=== PATIENT | female | born 1990 | race Hispanic/Latino ===

== ENCOUNTER 2019-12-11 20:10 | Emergency (ER) | payer SELFPAY ==
--- NOTE | 2019-12-11 20:44 | Event Note ---
ED Screening Note ED Screening Note: hx of hernia periumbilical abd pain for 3 days ago constipation for 2 days no diarrhea +nausea no vomiting able to tolerate PO intake PMHx none no allergies to meds LNMP: 11/24/2019 abd surgical hx: x2 This initial assessment/diagnostic orders/clinical plan/treatment(s) is/are subject to change based on patients health status, clinical progression and re- assessment by fellow clinical providers in the ED. Further treatment and workup at subsequent clinical providers discretion. Patient/guardian urged not to elope from the ED as their condition may be serious if not clinically assessed and managed. Initial orders include: labs, UA
[2019-12-11] MEDS ORDERED: MORPHINE 4 MG/1 ML INJ IV ONE (21:04)
[2019-12-11] MEDS ORDERED: ONDANSETRON 4 MG/2 ML INJ IV ONE (21:04)
[2019-12-11] MEDS ORDERED: SODIUM CHLORIDE 0.9% 1000 ML 1,000 ML IV ONE (21:04)
[2019-12-11 21:16] LABS: Basophils % (Auto) 0.5 % (0.0-1.8); Eosinophils # (Auto) 0.1 K/mm3 (0.0-0.4); Eosinophils % (Auto) 1.2 % (0.0-4.3); Hematocrit 39.6 % (30.3-42.9); Hemoglobin 13.6 gm/dl (10.1-14.3); Lymphocytes # (Auto) 2.9 K/mm3 (1.2-5.4); Lymphocytes % (Auto) 28.7 % (13.4-35.0); Mean Corpuscular HGB Conc 34 % (30-34); Mean Corpuscular Volume 96 fl (79-97); Monocytes # (Auto) 0.6 K/mm3 (0.0-0.8); Monocytes % (Auto) 6.1 % (0.0-7.3); Platelet Count 257 K/mm3 (140-440); Red Blood Count 4.14 M/mm3 (3.65-5.03); Red Cell Distribution Width 13.3 % (13.2-15.2)
[2019-12-11 21:29] LABS: Alanine Aminotransferase 15 units/L (7-56); Albumin 4.4 g/dL (3.9-5); Blood Urea Nitrogen 13 mg/dL (7-17); Hemolysis Index 23
[2019-12-11 21:32] LABS: BUN/Creatinine Ratio 19
[2019-12-11 22:38] LABS: Bilirubin,Urine NEG (Negative); Blood,Urine NEG (Negative); Color,Urine Straw (Yellow); Mucus,Urine FEW /HPF; Protein,Urine <15 mg/dL mg/dL (Negative); RBC,Urine < 1.0 /HPF (0.0-6.0); Urobilinogen,Urine < 2.0 mg/dL (<2.0); WBC,Urine < 1.0 /HPF (0.0-6.0)
--- NOTE | 2019-12-12 00:51 | Emergency Department Report ---
<JESUSITA RAMIREZ - Last Filed: 12/12/19 01:25> ED Abdominal Pain HPI - General Chief Complaint: Abdominal Pain Stated Complaint: ABDOMINAL PAIN NEAR BELLY BUTTON Time Seen by Provider: 12/11/19 20:42 Source: patient Mode of arrival: Ambulatory Limitations: No Limitations - History of Present Illness Initial Comments: Patient is a 29-year-old white female with a history of asthma and seizures as a child who presents to the ED with complaint of acute onset persistent severe abdominal pain in the periumbilical area with nausea, worse in the last 3 days. Patient states that she also has a history of umbilical hernia but that the pain has never been worse than it is currently. Patient states that she was supposed to follow-up with the general surgeon when she was with her last child about a year ago but did not follow-up because of her . Patient states that since then she has not had any problem with umbilical hernia. Patient states that the pain has worsened especially the last 3 days. Patient denies fever, chills, dizziness, syncope, vomiting, diarrhea, chest pain, shortness of breath, dysuria, urinary frequency and urgency, traumatic injury, heavy lifting, fall or back pain sore throat and vaginal bleeding. MD Complaint: abdominal pain, other (Nausea) -: Sudden, days(s) (5) Location: periumbilical Radiation: none Migration to: no migration Severity: severe Severity scale (0 -10): 8 Quality: aching, sharp Consistency: constant Improves With: nothing Worsens With: movement Associated Symptoms: denies other symptoms, nausea. denies: vomiting, diarrhea, fever, chills, constipation, dysuria, hematemesis, hematochezia, melena, hematuria, anorexia, other - Related Data LMP Date: 11/19/19 Previous Rx's Medication Instructions Recorded Last Taken Type Ferrous Sulfate [Feosol 325 MG tab] 325 mg PO QDAY #60 tablet 01/09/18 Unknown Rx Vit-Fe Fumar-FA [ 1 each PO QDAY #30 tablet 01/09/18 Unknown Rx Vitamin] oxyCODONE /ACETAMINOPHEN [Percocet 1 tab PO Q6H PRN #30 tablet 01/09/18 Unknown Rx 5/325 mg] Docusate Sodium [Colace] 100 mg PO BID PRN #20 capsule 11/04/20 Unknown Rx Ibuprofen [Motrin 800 MG tab] 800 mg PO Q6H PRN #30 tablet 12/12/19 Unknown Rx Ondansetron [Zofran Odt] 4 mg PO Q8HR PRN #20 tab.rapdis 12/12/19 Unknown Rx traMADoL [Ultram 50 MG tab] 50 mg PO Q6HR PRN #15 tablet 12/12/19 Unknown Rx Allergies Allergy/AdvReac Type Severity Reaction Status Date / Time No Known Allergies Allergy Unverified 01/06/18 06:08 ED Review of Systems Constitutional: denies: chills, fever Eyes: denies: eye pain, eye discharge, vision change ENT: denies: ear pain, throat pain Respiratory: denies: cough, shortness of breath, wheezing Cardiovascular: denies: chest pain, palpitations Endocrine: no symptoms reported Gastrointestinal: abdominal pain (Periumbilical), nausea. denies: diarrhea Genitourinary: denies: urgency, dysuria, discharge Musculoskeletal: denies: back pain, joint swelling, arthralgia Skin: denies: rash, lesions Neurological: denies: headache, weakness, paresthesias Psychiatric: denies: anxiety, depression Hematological/Lymphatic: denies: easy bleeding, easy bruising ED Past Medical Hx - Past Medical History Previous Medical History?: Yes Hx Hypertension: No Hx Diabetes: No Hx Deep Vein Thrombosis: No Hx Renal Disease: No Hx Sickle Cell Disease: No Hx Seizures: Yes (last at age 12) Hx Asthma: Yes Hx HIV: No - Surgical History Past Surgical History?: No - Social History Smoking Status: Never Smoker Substance Use Type: None - Medications Home Medications: Home Medications Medication Instructions Recorded Confirmed Last Taken Type Ferrous Sulfate [Feosol 325 MG tab] 325 mg PO QDAY #60 tablet 01/09/18 Unknown Rx Vit-Fe Fumar-FA [ 1 each PO QDAY #30 tablet 01/09/18 Unknown Rx Vitamin] oxyCODONE /ACETAMINOPHEN [Percocet 1 tab PO Q6H PRN #30 tablet 01/09/18 Unknown Rx 5/325 mg] Docusate Sodium [Colace] 100 mg PO BID PRN #20 capsule 12/12/19 Unknown Rx Ibuprofen [Motrin 800 MG tab] 800 mg PO Q6H PRN #30 tablet 12/12/19 Unknown Rx Ondansetron [Zofran Odt] 4 mg PO Q8HR PRN #20 tab.rapdis 12/12/19 Unknown Rx traMADoL [Ultram 50 MG tab] 50 mg PO Q6HR PRN #15 tablet 12/12/19 Unknown Rx ED Physical Exam - General Limitations: No Limitations General appearance: alert, in no apparent distress - Head Head exam: Present: atraumatic, normocephalic, normal inspection - Eye Eye exam: Present: normal appearance, PERRL, EOMI - ENT ENT exam: Present: normal exam, normal orophraynx, mucous membranes moist, TM's normal bilaterally, normal external ear exam - Neck Neck exam: Present: normal inspection, full ROM - Respiratory Respiratory exam: Present: normal lung sounds bilaterally. Absent: respiratory distress, wheezes, rales, rhonchi, chest wall tenderness, accessory muscle use, decreased breath sounds, prolonged expiratory - Cardiovascular Cardiovascular Exam: Present: regular rate, normal rhythm, normal heart sounds. Absent: systolic murmur, diastolic murmur, rubs, gallop - GI/Abdominal GI/Abdominal exam: Present: soft, tenderness (Palpable periumbilical abdominal tenderness, with guarding), guarding, normal bowel sounds. Absent: rebound, rigid, hyperactive bowel sounds, organomegaly - Bi-manual exam: Present: other (Pelvic exam deferred) - Extremities Exam Extremities exam: Present: normal inspection, full ROM, normal capillary refill. Absent: pedal edema - Back Exam Back exam: Present: normal inspection, full ROM. Absent: tenderness, CVA tenderness (R), CVA tenderness (L), muscle spasm, paraspinal tenderness, vertebral tenderness - Neurological Exam Neurological exam: Present: alert, oriented X3, CN II-XII intact, normal gait, reflexes normal - Psychiatric Psychiatric exam: Present: normal affect, normal mood - Skin Skin exam: Present: warm, dry, intact, normal color. Absent: rash ED Medical Decision Making - Lab Data Result diagrams: 12/11/19 20:56 12/11/19 20:56 - Radiology Data Radiology results: report reviewed, image reviewed Findings [facility] [address] [place] [address] Cat Scan Report Signed Patient: VIKY CARIAS MR#: [id number] : 1990 Acct:[id number] Age/Sex: 29 / F ADM Date: 12/11/19 Loc: ED Attending Dr: Ordering Physician: LAWRENCE SOTELO Date of Service: 12/11/19 Procedure(s): CT abdomen pelvis w con Accession Number(s): [id number] cc: LAWRENCE SOTELO CT ABDOMEN AND PELVIS WITH IV CONTRAST INDICATION: Patient complains of abdominal pain, question poss hernia. COMPARISON: None available. TECHNIQUE: Axial CT images were obtained through the abdomen and pelvis after 100 mL IV contrast. All CT scans at this location are performed using CT dose reduction for ALARA by means of automated exposure control. FINDINGS -- ABDOMEN: Lung Bases: No acute abnormality. Liver: Normal. Gallbladder: Normal. Bile Ducts: Normal. Pancreas: Normal. Spleen: Normal. Adrenals: Normal. Right Kidney and Proximal Ureter: Normal. Left Kidney and Proximal Ureter: Normal. Stomach and Bowel: Normal. Lymph Nodes: No significant adenopathy. Aorta: No significant abnormality. IVC: Normal. Additional Findings: There is a prominent ventral abdominal hernia that measures 2.5 cm in diameter that contains herniated omental fat.. FINDINGS -- PELVIS: Urinary Bladder and Distal Ureters: Mild urinary bladder wall thickening.. Reproductive Organs: Hemorrhagic peripherally enhancing type cyst identified within the right ovary measuring 1.7 cm in diameter.. Appendix: Normal. Bowel: No acute abnormality. Free Fluid: None. Lymph Nodes: No significant adenopathy. Additional Findings: None. Skeletal System: No acute abnormality. IMPRESSION: 1. 2 cm ventral abdominal wall hernia containing herniated omentum concerning moderately developed ischemia of the herniated omentum. No evidence of high-grade small bowel large bowel obstruction. 2. Nonspecific urinary bladder wall thickening could be seen with cystitis. Signer Name: Phil Arana MD Signed: 12/12/2019 12:56 AM Workstation Name: [id number] Transcribed By: BC Dictated By: Phil Arana MD Electronically Authenticated By: Phil Arana MD Signed Date/Time: [birth year]/1955 DD/ TD/TT: - Differential Diagnosis Incarcerated hernia; SBO; appendicitis; cholelithiasis; colitis ED Disposition Clinical Impression: Ventral hernia Abdominal pain Qualifiers: Abdominal location: periumbilical Qualified Code(s): R10.33 - Periumbilical pain Disposition: DC-01 TO HOME OR SELFCARE Condition: Stable Instructions: Ventral Hernia (ED), Moderate Sedation (ED) Additional Instructions: Take the medication as prescribed. Follow-up with your doctor or doctor/clinic provided. Return if symptoms worsen as indicated by your discharge instructions. Prescriptions: Docusate Sodium [Colace] 100 mg PO BID PRN #20 capsule PRN Reason: Constipation Ibuprofen [Motrin 800 MG tab] 800 mg PO Q6H PRN #30 tablet PRN Reason: Pain, Mild (1-3) traMADoL [Ultram 50 MG tab] 50 mg PO Q6HR PRN #15 tablet PRN Reason: Pain Ondansetron [Zofran Odt] 4 mg PO Q8HR PRN #20 tab.rapdis PRN Reason: Nausea And Vomiting Referrals: BENITA SYKES DO [Staff Physician] - 2-3 Days (surgeon ) <ARNULFO WHALEY - Last Filed: 12/12/19 05:35> ED Review of Systems ROS: Stated complaint: ABDOMINAL PAIN NEAR BELLY BUTTON Other details as noted in HPI ED Course Vital Signs 12/11/19 12/12/19 12/12/19 20:34 02:30 02:31 Temperature 98.7 F Pulse Rate 69 46 L 58 L Pulse Rate [ Intra-Procedure ] Pulse Rate [ Post-Procedure] Pulse Rate [Pre -Procedure] Respiratory 20 14 14 Rate Respiratory Rate [Intra- Procedure] Respiratory Rate [Post- Procedure] Respiratory Rate [Pre- Procedure] Blood Pressure 119/60 131/73 Blood Pressure [Intra- Procedure] Blood Pressure 115/57 [Left] Blood Pressure [Post-Procedure ] Blood Pressure [Pre-Procedure] O2 Sat by Pulse 100 100 100 Oximetry O2 Sat by Pulse Oximetry [ Intra-Procedure ] O2 Sat by Pulse Oximetry [Post -Procedure] O2 Sat by Pulse Oximetry [Pre- Procedure] 12/12/19 12/12/19 12/12/19 02:45 02:50 02:55 Temperature Pulse Rate 58 L Pulse Rate [ 80 Intra-Procedure ] Pulse Rate [ Post-Procedure] Pulse Rate [Pre 52 L -Procedure] Respiratory 14 Rate Respiratory 22 Rate [Intra- Procedure] Respiratory Rate [Post- Procedure] Respiratory 12 Rate [Pre- Procedure] Blood Pressure 108/48 Blood Pressure 157/97 [Intra- Procedure] Blood Pressure [Left] Blood Pressure [Post-Procedure ] Blood Pressure 115/57 [Pre-Procedure] O2 Sat by Pulse 100 Oximetry O2 Sat by Pulse 100 Oximetry [ Intra-Procedure ] O2 Sat by Pulse Oximetry [Post -Procedure] O2 Sat by Pulse 100 Oximetry [Pre- Procedure] 12/12/19 12/12/19 12/12/19 03:00 03:05 03:10 Temperature Pulse Rate 111 H Pulse Rate [ 85 66 Intra-Procedure ] Pulse Rate [ Post-Procedure] Pulse Rate [Pre 110 H -Procedure] Respiratory 22 Rate Respiratory 19 10 L Rate [Intra- Procedure] Respiratory Rate [Post- Procedure] Respiratory 21 Rate [Pre- Procedure] Blood Pressure 160/80 Blood Pressure 155/80 170/74 [Intra- Procedure] Blood Pressure [Left] Blood Pressure [Post-Procedure ] Blood Pressure 160/80 [Pre-Procedure] O2 Sat by Pulse 100 Oximetry O2 Sat by Pulse 100 100 Oximetry [ Intra-Procedure ] O2 Sat by Pulse Oximetry [Post -Procedure] O2 Sat by Pulse 100 Oximetry [Pre- Procedure] 12/12/19 12/12/19 12/12/19 03:15 03:16 03:24 Temperature Pulse Rate 53 L Pulse Rate [ Intra-Procedure ] Pulse Rate [ 58 L 51 L Post-Procedure] Pulse Rate [Pre -Procedure] Respiratory 10 L Rate Respiratory Rate [Intra- Procedure] Respiratory 13 12 Rate [Post- Procedure] Respiratory Rate [Pre- Procedure] Blood Pressure 134/72 Blood Pressure [Intra- Procedure] Blood Pressure [Left] Blood Pressure 134/72 118/67 [Post-Procedure ] Blood Pressure [Pre-Procedure] O2 Sat by Pulse 100 Oximetry O2 Sat by Pulse Oximetry [ Intra-Procedure ] O2 Sat by Pulse 99 98 Oximetry [Post -Procedure] O2 Sat by Pulse Oximetry [Pre- Procedure] 12/12/19 12/12/19 12/12/19 03:30 03:45 05:11 Temperature Pulse Rate 47 L 45 L 66 Pulse Rate [ Intra-Procedure ] Pulse Rate [ Post-Procedure] Pulse Rate [Pre -Procedure] Respiratory 11 L 11 L 12 Rate Respiratory Rate [Intra- Procedure] Respiratory Rate [Post- Procedure] Respiratory Rate [Pre- Procedure] Blood Pressure 112/65 118/57 Blood Pressure [Intra- Procedure] Blood Pressure 105/55 [Left] Blood Pressure [Post-Procedure ] Blood Pressure [Pre-Procedure] O2 Sat by Pulse 98 98 100 Oximetry O2 Sat by Pulse Oximetry [ Intra-Procedure ] O2 Sat by Pulse Oximetry [Post -Procedure] O2 Sat by Pulse Oximetry [Pre- Procedure] - Consultations Consultation #1: 12/12/19 01:[address] Sykes on-call surgeon who states that I may attempt to reduce hernia with omentum. If hernia is irreducible and patient has significant pain she may be admitted to the hospital service and she will consult on the patient in the a.m. if pain is controlled patient may discharged - Procedure Description Procedures done: Supraumbilical ventral hernia reduction. Patient has a ventral hernia above the umbilicus with omental fat herniation. Patient received ketamine and pressure held with palpation of hernia ring on exam. Status post procedure patient denies persistent abdominal pain and feels better. - Moderate Sedation Indications: other ASA Class: I Mallampati Airway Score: 2 Time of Last PO Intake: 01:45 (sip of soda) Preparation: phototypesetting equipment monitor applied, pulse oximeter, capnometry used, suppl emental O2 applied, suction/airway equipment at bedside, IV secured Ketamine: IV Ketamine Dose: 77 Complications: none Patient Tolerated Procedure: well, no complications Additional Comments: Procedure time onset 2:48 and ended 2:56am for reduction of ventral hernia. Patient was then observed and monitored by nurse and respiratory therapist (see note) ED Medical Decision Making - Lab Data Result diagrams: 12/11/19 20:56 12/11/19 20:56 Lab Results 12/11/19 12/11/19 12/11/19 Range/Units 20:56 20:56 20:56 WBC 10.2 (4.5-11.0) K/mm3 RBC 4.14 (3.65-5.03) M/mm3 Hgb 13.6 (10.1-14.3) gm/dl Hct 39.6 (30.3-42.9) % MCV 96 (79-97) fl MCH 33 H (28-32) pg MCHC 34 (30-34) % RDW 13.3 (13.2-15.2) % Plt Count 257 (140-440) K/mm3 Lymph % (Auto) 28.7 (13.4-35.0) % [place] % (Auto) 6.1 (0.0-7.3) % Eos % (Auto) 1.2 (0.0-4.3) % Baso % (Auto) 0.5 (0.0-1.8) % Lymph # (Auto) 2.9 (1.2-5.4) K/mm3 [place] # (Auto) 0.6 (0.0-0.8) K/mm3 Eos # (Auto) 0.1 (0.0-0.4) K/mm3 Baso # (Auto) 0.0 (0.0-0.1) K/mm3 Seg Neutrophils % 63.5 (40.0-70.0) % Seg Neutrophils # 6.5 (1.8-7.7) K/mm3 Sodium 137 (137-145) mmol/L Potassium 3.7 (3.6-5.0) mmol/L Chloride 102.3 (98-107) mmol/L Carbon Dioxide 24 (22-30) mmol/L Anion Gap 14 mmol/L BUN 13 (7-17) mg/dL Creatinine 0.7 (0.6-1.2) mg/dL Estimated GFR > 60 ml/min BUN/Creatinine Ratio 19 % Glucose 90 (65-100) mg/dL Calcium 9.0 (8.4-10.2) mg/dL Total Bilirubin < 0.20 (0.1-1.2) mg/dL AST 15 (5-40) units/L ALT 15 (7-56) units/L Alkaline Phosphatase 58 (35-129) units/L Total Protein 7.3 (6.3-8.2) g/dL Albumin 4.4 (3.9-5) g/dL Albumin/Globulin Ratio 1.5 % Lipase 18 (13-60) units/L HCG, Qual Negative (Negative) Urine Color (Yellow) Urine Turbidity (Clear) Urine pH (5.0-7.0) Ur Specific [place] (1.003-1.030) Urine Protein (Negative) mg/dL Urine Glucose (UA) (Negative) mg/dL Urine Ketones (Negative) mg/dL Urine Blood (Negative) Urine Nitrite (Negative) Urine Bilirubin (Negative) Urine Urobilinogen (<2.0) mg/dL Ur Leukocyte Esterase (Negative) Urine WBC (Auto) (0.0-6.0) /HPF Urine RBC (Auto) (0.0-6.0) /HPF U Epithel Cells (Auto) (0-13.0) /HPF Urine Mucus /HPF 12/11/19 Range/Units 22:00 WBC (4.5-11.0) K/mm3 RBC (3.65-5.03) M/mm3 Hgb (10.1-14.3) gm/dl Hct (30.3-42.9) % MCV (79-97) fl MCH (28-32) pg MCHC (30-34) % RDW (13.2-15.2) % Plt Count (140-440) K/mm3 Lymph % (Auto) (13.4-35.0) % [place] % (Auto) (0.0-7.3) % Eos % (Auto) (0.0-4.3) % Baso % (Auto) (0.0-1.8) % Lymph # (Auto) (1.2-5.4) K/mm3 [place] # (Auto) (0.0-0.8) K/mm3 Eos # (Auto) (0.0-0.4) K/mm3 Baso # (Auto) (0.0-0.1) K/mm3 Seg Neutrophils % (40.0-70.0) % Seg Neutrophils # (1.8-7.7) K/mm3 Sodium (137-145) mmol/L Potassium (3.6-5.0) mmol/L Chloride (98-107) mmol/L Carbon Dioxide (22-30) mmol/L Anion Gap mmol/L BUN (7-17) mg/dL Creatinine (0.6-1.2) mg/dL Estimated GFR ml/min BUN/Creatinine Ratio % Glucose (65-100) mg/dL Calcium (8.4-10.2) mg/dL Total Bilirubin (0.1-1.2) mg/dL AST (5-40) units/L ALT (7-56) units/L Alkaline Phosphatase (35-129) units/L Total Protein (6.3-8.2) g/dL Albumin (3.9-5) g/dL Albumin/Globulin Ratio % Lipase (13-60) units/L HCG, Qual (Negative) Urine Color Straw (Yellow) Urine Turbidity Clear (Clear) Urine pH 5.0 (5.0-7.0) Ur Specific [place] 1.008 (1.003-1.030) Urine Protein <15 mg/dl (Negative) mg/dL Urine Glucose (UA) Neg (Negative) mg/dL Urine Ketones Neg (Negative) mg/dL Urine Blood Neg (Negative) Urine Nitrite Neg (Negative) Urine Bilirubin Neg (Negative) Urine Urobilinogen < 2.0 (<2.0) mg/dL Ur Leukocyte Esterase Neg (Negative) Urine WBC (Auto) < 1.0 (0.0-6.0) /HPF Urine RBC (Auto) < 1.0 (0.0-6.0) /HPF U Epithel Cells (Auto) 2.0 (0-13.0) /HPF Urine Mucus Few /HPF - Medical Decision Making Care assumed from local provider who performed initial evaluation and work-up. Patient presents to the hospital with abdominal pain worsening for the past 3 days with nausea and ventral hernia with omental fat and ischemia on CT abdomen and pelvis. Patient does not have leukocytosis, fever, or signs of sepsis. Case discussed with general surgeon who recommended a did reduction attempt in the ED with directions to admit if pain persists and discharged if patient feels better status post reduction attempt. Patient does feel better after reduction with no complaints of pain. She did develop nausea and vomiting after ketamine and reports previous history of nausea vomiting after anesthesia status post C- section in the past. Patient will be discharged with outpatient surgery follow- up. Critical Care Time: No Critical care attestation.: If time is entered above; I have spent that time in minutes in the direct care of this critically ill patient, excluding procedure time. ED Disposition Is pt being admited?: No Does the pt Need Aspirin: No Time of Disposition: 05:32
--- NOTE | 2019-12-12 01:01 | Cat Scan Report ---
CT ABDOMEN AND PELVIS WITH IV CONTRAST INDICATION: Patient complains of abdominal pain, question poss hernia. COMPARISON: None available. TECHNIQUE: Axial CT images were obtained through the abdomen and pelvis after 100 mL IV contrast. All CT scans a t this location are performed using CT dose reduction for ALARA by means of automated exposure contro l. FINDINGS -- ABDOMEN: Lung Bases: No acute abnormality. Liver: Normal. Gallbladder: Normal. Bile Ducts: Normal. Pancreas: Normal. Spleen: Normal. Adrenals: Normal. Right Kidney and Proximal Ureter: Normal. Left Kidney and Proximal Ureter: Normal. Stomach and Bowel: Normal. Lymph Nodes: No significant adenopathy. Aorta: No significant abnormality. IVC: Normal. Additional Findings: There is a prominent ventral abdominal hernia that measures 2.5 cm in diameter t hat contains herniated omental fat.. FINDINGS -- PELVIS: Urinary Bladder and Distal Ureters: Mild urinary bladder wall thickening.. Reproductive Organs: Hemorrhagic peripherally enhancing type cyst identified within the right ovary m easuring 1.7 cm in diameter.. Appendix: Normal. Bowel: No acute abnormality. Free Fluid: None. Lymph Nodes: No significant adenopathy. Additional Findings: None. Skeletal System: No acute abnormality. IMPRESSION: 1. 2 cm ventral abdominal wall hernia containing herniated omentum concerning moderately developed is chemia of the herniated omentum. No evidence of high-grade small bowel large bowel obstruction. 2. Nonspecific urinary bladder wall thickening could be seen with cystitis. Signer Name: Phil Arana MD Signed: 12/12/2019 12:56 AM Workstation Name: [id number]
[2019-12-12] MEDS ORDERED: ONDANSETRON 4 MG/2 ML INJ IV ONE ×2 (01:21→03:10)
[2019-12-12] MEDS ORDERED: HYDROmorphone 1 MG/1 ML INJ IV ONE (01:21)
[2019-12-12] MEDS ORDERED: LORazepam 2 MG/ML VIAL ONE (02:05)
[2019-12-12] MEDS ORDERED: KETAMINE 500 MG/5 ML VIAL MDV ONE (02:05)
[2019-12-12] MEDS ORDERED: KETAMINE 500 MG/5 ML VIAL MDV IV ONE (02:32)
[2019-12-12] MEDS ORDERED: SODIUM CHLORIDE 0.9% 500 ML 500 ML IV ONE (03:10)
[2019-12-12] MEDS ORDERED: SODIUM CHLORIDE 0.9% 500 ML 500 ML ONE (03:13)
[2019-12-12 05:12] VITALS: BP 105/55
== END 2019-12-12 07:11 | disposition home or self-care (01) ==
LOC: ED 20:10
DX: K43.9 Ventral hernia without obstruction or gangrene (principal); R10.33 Periumbilical pain; J45.909 Unspecified asthma, uncomplicated; Z79.899 Other long term (current) drug therapy; Z86.69 Personal history of other diseases of the nervous system and sense organs
CPT/HCPCS: 36415; 74177; 80053; 81001; 83690; 84703; 85025; 96361; 96374; 96375; 96376; 99284; J1170; J2270; J2405; J7030; J7040; Q9967; J2060